=== PATIENT | female | born 2005 | race Caucasian/White ===

== ENCOUNTER 2024-10-20 09:47 | Emergency (ER) | payer SELFPAY ==
[~2024-10-20] VITALS: Ht 160 cm; Wt 93.0 kg
[2024-10-20 09:48] VITALS: BP 106/72; PULSE 80; RESP 16; O2SAT 97
[2024-10-20] MEDS ORDERED: ALBU8HFA INH (10:47)
[2024-10-20] MEDS ORDERED: BENZ-38 PO (10:47)
[2024-10-20 10:59] VITALS: TEMP 97.3
== END 2024-10-20 11:02 | disposition home or self-care (01) ==
LOC: ER 09:48
DX: J32.8 Other chronic sinusitis (principal); R05.9 Cough, unspecified
CPT/HCPCS: 99283

== ENCOUNTER 2024-11-26 10:10 | Emergency (ER) | payer OTHER ==
[~2024-11-26] VITALS: Ht 160 cm; Wt 90.5 kg
[2024-11-26 10:14] VITALS: BP 108/69; PULSE 76; RESP 16; O2SAT 100
--- NOTE | 2024-11-26 10:42 | RADIOLOGY REPORT ---
DI HAND, COMPLETE (3VW MIN), INDICATION: HAND PAIN TECHNICAL DATA: Frontal, oblique and lateral views were obtained of the right hand. COMPARISON: None FINDINGS: No fracture is identified. Joint spaces are maintained. Alignment is anatomic. Soft tissues are withi n normal limits. IMPRESSION: No acute fracture or dislocation of the right hand.
--- NOTE | 2024-11-26 12:56 | Physician Documentation ---
History of Present Illness ~ Chief Complaint: Hand pain Stated Complaint: RIGHT THUMB X2 DAYS Time Seen by MD: 11:37 HPI We will female presents with right thumb pain states she fell 2-3 days ago and injured her right thumb felt as though it hyperextended.. Reports increased pain and swelling denies any numbness or tingling Day of Onset: November 26, 2024 Medication Reconciliation Allergies: Coded Allergies: No Known Allergies (Unverified , 11/26/24) Discontinued Medications albuterol inhaler (Pro-Air Inhaler), 2 PUFFS INH Q4HPRN PRN for wheezing Discontinued Reason: Auto Discontinued Past Medical History Past Medical History: No Pertinent History Review of Systems All Other Systems at this time: Reviewed and Negative ROS As stated above in the HPI, otherwise all systems are reviewed and negative. Physical Exam Vital Signs: Temperature: 98.6, Source: Temporal, Heart Rate: 76, Respiratory Rate: 16, BP: 108/69, Pulse Oximetry: 100, Weight: 90.500 Oxygen Flow Rate: 0 Physical Exam General: Alert, no apparent distress. HEENT: PERRL, EOMI, no injection, moist mucous membranes. Neck: Full range of motion. Extremities: Notable for developing ecchymosis notable swelling no deformity Neurologic: Oriented x4. Psychiatric: Normal mood and affect. Skin: Normal color, warm and dry. No edema, no ecchymosis. Progress Results/Orders Results/Orders Vital Signs 11/26/24 10:14 Temp 98.6 Pulse 76 Resp 16 B/P (MAP) 108/69 Pulse Ox 100 O2 Flow Rate 0 Medical Decision Making Findings Per my interpretation patient's x-ray did not see any acute fracture radiologist's echoes these findings. Place patient in a thumb spica for comfort and advised her to follow up in the outpatient setting with her primary care. Departure Disposition: HOME / SELF CARE / HOMELESS Impression: Primary Impression: Hand pain Condition: Stable Discharge Instructions: Contusion (Bruise), Sprains Referrals: NO PRIMARY CARE PROVIDER (PCP) Signature Scribe Signature: 6t Attestation: The note accurately reflects work and decisions made by me.Quinn Suárez NP 11/26/24 12:55 QUINN GAVIRIA NP November 26, 2024 12:56
[2024-11-26 13:06] VITALS: TEMP 98.6
== END 2024-11-26 13:08 | disposition home or self-care (01) ==
LOC: ER 10:10
DX: M79.641 Pain in right hand (principal)
CPT/HCPCS: 29125; 73130; 99283

== ENCOUNTER 2025-01-14 11:01 | Emergency (ER) | payer OTHER ==
[~2025-01-14] VITALS: Ht 162.6 cm; Wt 85.0 kg
[~2025-01-14 11:01] MED LIST: ONDA-245 PO; PANT-47 PO
[2025-01-14 11:21] VITALS: TEMP 97.1
--- NOTE | 2025-01-14 11:25 | Physician Documentation ---
History of Present Illness Stated Complaint: ABD PAIN Primary Medical Doctor: MAURO HUA 19-year-old female presents to the ED with a complaint of right upper quadrant abdominal pain since this morning. She states while in [place] she had increase pain that primarily in the upper right quadrants of her abdominal cavity. States all she had for breakfast today was serial denies any exacerbating or alleviating factors. She did say that she was seen here in the ED and received a GI cocktail MD History: Patient comes in for evaluation of epigastric discomfort. This has been going on for about three weeks, worse with p.o. intake. She was seen three days ago for the epigastric pain as well as nausea and vomiting, had some relief with a GI cocktail, and was found to have a reassuring workup with no evidence of other pathology. She was discharged with Protonix and Zofran, which she has been guru matute. She comes in today reporting that the pain is still present and more stabbing than it was. She denies any vomiting, denies any blood in the stool. Medication Reconciliation Allergies: Coded Allergies: No Known Allergies (Unverified , 11/26/24) Scheduled Ondansetron 8mg ODT (Ondansetron Odt), 1 TAB PO Q6H Pantoprazole Sodium (PROTONIX tablet), 1 TAB PO DAILY Past Medical History Past Medical History: No Pertinent History Smoking Status: Former smoker (Quit four months ago) Alcohol Use: Sober Drug Use: none Review of Systems All Other Systems at this time: Reviewed and Negative Physical Exam Physical Exam General: Pt is awake, alert, oriented x4 in no acute distress and well appearing. Head: Normocephalic and atraumatic. Eyes: Conjunctiva normal. ENT: Mucous membranes moist. Neck: Supple. Chest: Clear to auscultation bilaterally, without rales, rhonchi, or wheezes. There is no accessory muscle use or retractions. Cardiac: Regular rate and rhythm without murmurs, gallops or rubs. Palpation of the chest wall is normal. Abd: Soft, nondistended, mildly tender in the epigastrium, with normoactive bowel sounds. No guarding or rebound. Extremities: Within normal limits without cyanosis, clubbing, or edema. Skin: [place], warm and dry with no significant rash appreciated. Neuro: Cranial nerves II-XII grossly intact. The gait is normal. Medical Decision Making Additional Comments Patient presented for evaluation of continuing epigastric pain, status post workup three days ago and institution of Zofran and Protonix. No new worrisome findings, physical examination showing no evidence for peritonitis, no need for repeat blood work to be done. Patient's ultrasound had been ordered in triage, to evaluate the right upper quadrant and there is no evidence for any right upper quadrant hepatobiliary pathology. Her symptoms are likely referable to gastritis versus peptic ulcer disease versus gastroesophageal reflux, and she has already started on the correct medication, although it will take occasionally a few days to start working. She is advised to use an antacid as needed for symptoms, and to follow up closely with her primary care in order to recheck and evaluate for EGD if necessary. Patient is stable for discharge, understands to return to the emergency department for any worsening of her symptoms or other concerns. Departure Time of Disposition: 13:54 Disposition: HOME / SELF CARE / HOMELESS Impression: Primary Impression: Abdominal pain Qualified Codes: R10.9 - Unspecified abdominal pain Condition: Stable Discharge Instructions: Abdominal Pain (Nonspecific), Gastritis, Adult Additional Instructions: Your ultrasound is normal showing no problem with your liver, gallbladder, or bile duct at this time. Your symptoms are likely secondary to problems with your stomach/esophagus as we discussed, and you should continue to take the Protonix. Please follow-up with your primary care provider, for a recheck and for referral to a GI specialist for a scope of your upper GI tract if it becomes necessary. Return to the emergency department if you have any new or worsening symptoms or any other concerns. Referrals: NO PRIMARY CARE PROVIDER (PCP) Education Educated: Patient Educated regarding: diagnosis, treatment Signature Scribe Signature: Attestation: ARCENIO GAVIRIA NP Jan 14, 2025 11:25 ALYCIA AN MD Jan 14, 2025 12:32
[2025-01-14 12:51] VITALS: BP 102/68; PULSE 84; RESP 19; O2SAT 98
--- NOTE | 2025-01-14 13:01 | RADIOLOGY REPORT ---
CLINICAL INFORMATION: 19 years old, Female; RUQ pain. TECHNIQUE: Grayscale sonographic imaging of the right upper quadrant of the abdomen was performed, a ssisted by color Doppler techniques. COMPARISON: None FINDINGS: The gallbladder wall measures 3.1 mm in thickness, at the upper limits of normal. No sto elie are seen. Negative reported sonographic buchanan's sign. The common bile duct measures 1.7 mm in d iameter, within normal limits. The liver is normal in size and echotexture. No focal lesions. The pancreas is obscured by bowel gas. The right kidney measures 9.3 cm. There is no hydronephrosis. Right renal cortical echogenicity an d cortical thickness are within normal limits. IMPRESSION: 1. No sonographic evidence of acute cholecystitis. 2. No acute findings are seen in the right upper abdomen.
== END 2025-01-14 14:14 | disposition home or self-care (01) ==
LOC: ER 11:02
DX: R10.11 Right upper quadrant pain (principal); F10.90 Alcohol use, unspecified, uncomplicated; Z87.891 Personal history of nicotine dependence; Y90.9 Presence of alcohol in blood, level not specified
CPT/HCPCS: 76700; 99284

== ENCOUNTER 2025-04-10 20:58 | Emergency (ER) | payer OTHER ==
[~2025-04-10] VITALS: Ht 160 cm; Wt 82.2 kg
[2025-04-10 21:12] VITALS: TEMP 97.9
[2025-04-10 21:22] LABS: MEAN PLATELET VOLUME 7.7 FL (7.4-10.4); RED CELL DISTRIBUTION WIDTH 14.2 % (11.5-14.5)
--- NOTE | 2025-04-10 21:42 | RADIOLOGY REPORT ---
EXAM: DI CHEST,SINGLE VIEW CLINICAL HISTORY: CP TECHNIQUE: Single AP view of the chest WID: COMPARISON: None FINDINGS: Lines and tubes: None Chest: The heart size and pulmonary vasculature is within normal limits. No pleural effusion, pneumothorax, or consolidation. The osseous structures are grossly intact. IMPRESSION: 1. No acute cardiopulmonary abnormality.
[2025-04-10 21:47] LABS: CREATININE 0.85 MG/DL (0.40-0.90); PRO BRAIN NATRIURETIC PEPTIDE < 30 PG/ML (0-125); TOTAL CARBON DIOXIDE 27.4 MMOL/L (24-32); eCRCL 86 ML/MIN; eGFR 84 ML/MIN
[2025-04-10 22:28] LABS: LEUKOCYTE ESTERASE ,URINE NEGATIVE (Neg); NITRITES, URINE NEGATIVE (Neg); OCCULT BLOOD,URINE NEGATIVE (Neg)
[2025-04-10 22:29] LABS: URINE HCG NEGATIVE (NEG)
--- NOTE | 2025-04-10 22:35 | Physician Documentation ---
History of Present Illness ~ Chief Complaint: Chest Pain Stated Complaint: CHEST PAIN Time Seen by MD: 22:33 Primary Medical Doctor: MAURO BERMUDEZ Mode of Arrival: POV HPI Patient presents to the emergency room with some chest pain. Symptoms began last night. Patient has been worked up for heartburn in his recently discontinued her proton pump inhibitor as she is preparing for Urease breath test. No fevers. No abdominal pain. No relieving or exacerbating factors. Positive nausea without vomiting Medication Reconciliation Allergies: Coded Allergies: No Known Allergies (Unverified , 11/26/24) Scheduled Ondansetron 8mg ODT (Ondansetron Odt), 1 TAB PO Q6H Pantoprazole Sodium (PROTONIX tablet), 1 TAB PO DAILY Past Medical History Past Medical History: No Pertinent History Alcohol Use: Sober Drug Use: none Review of Systems ROS All review of systems negative except as per HPI Physical Exam Vital Signs: Temperature: 97.9, Heart Rate: 65, Respiratory Rate: 16, BP: 124/75, Pulse Oximetry: 98, Weight: 82.200 Oxygen Flow Rate: 0 Physical Exam General: Patient is awake, alert, oriented x4 in no acute distress and well appearing.~ Head: Normocephalic and atraumatic. Eyes: Conjunctival normal. EOMI. PERRL. ENT: Mucous membranes moist. Neck: Supple, trachea is midline. Chest: Clear to auscultation bilaterally without rales, rhonchi, or wheezes. There is no accessory muscle use or retractions. Cardiac: RRR without murmurs, gallops, or rubs. Abd: Soft, nondistended, nontender, with normoactive bowel sounds. No guarding, rebound, or rigidity. Progress Results/Orders Results/Orders Orders - EDWIN FERREIRA MD Chest,Single View (04/10/25 21:32) Monitor (04/10/25 21:08) Saline Lock (04/10/25 21:08) Oxygen (04/10/25 21:08) Electrocardiogram (04/10/25 21:08) Hs Troponin I W Calculations (04/10/25 23:08) Hs Troponin I W Calculations (04/11/25 00:08) Ua W/Microscopic, Cult If Ind (04/10/25 22:10) Ondansetron Disint. Tablet (Zofran Odt T (04/10/25 22:45) Mag & Alum Hydrox/Simeth Susp (Maalox Or (04/10/25 22:45) Completed Orders - EDWIN FERREIRA MD Chest,Single View (04/10/25 21:32) Cbc/Diff (04/10/25 21:08) BMP (04/10/25 21:08) PBNP (04/10/25 21:08) Hs Troponin I W Calculations (04/10/25 21:08) Hcg, Ur Ql (04/10/25 21:24) Lipase (04/10/25 21:15) Vital Signs 04/10/25 04/10/25 04/10/25 21:12 22:31 22:31 Temp 97.9 Pulse 78 65 Resp 16 16 16 B/P (MAP) 116/80 124/75 (91) Pulse Ox 100 98 O2 Flow Rate 0 0 Laboratory Tests Test 04/10/25 21:15 04/10/25 22:10 White Blood Count 11.4 H Red Blood Count 4.86 Hemoglobin 14.3 Hematocrit 42.8 Mean Corpuscular Volume 88.1 Mean Corpuscular Hemoglobin 29.5 Mean Corpuscular Hemoglobin Concent 33.5 Red Cell Distribution Width 14.2 Platelet Count 423 Mean Platelet Volume 7.7 Neutrophils (%) (Auto) 72.4 Lymphocytes (%) (Auto) 19.9 L Monocytes (%) (Auto) 5.3 Eosinophils (%) (Auto) 2.0 Basophils (%) (Auto) 0.4 Neutrophils # (Auto) 8.2 H Lymphocytes # (Auto) 2.3 Monocytes # (Auto) 0.6 Eosinophils # (Auto) 0.2 Basophils # (Auto) 0.0 CBC Comment Sodium Level 142 Potassium Level 4.5 Chloride Level 105 Carbon Dioxide Level 27.4 Anion Gap 10 Blood Urea Nitrogen 7 Creatinine 0.85 Estimated GFR/1.73 m2 84 BUN/Creatinine Ratio 8.2 L Glucose Level 100 Calcium Level 9.7 Troponin I High Sensitivity 4 Pro-B-Type Natriuretic Peptide < 30 Albumin 4.7 Lipase 18 Chemistry Comments Urine Specimen Description Cln catch midstream Urine Color Yellow Urine Clarity Slightly cloudy Urine pH 6.0 Urine Specific [place] >=1.030 Urine Protein Negative Urine Glucose (UA) Negative Urine Ketones 15 H Urine Occult Blood Negative Urine Nitrite Negative Urine Bilirubin Small Urine Urobilinogen 0.2 Urine Leukocyte Esterase Negative Volume Urine Centrifuged 10 ml Urine HCG, Qualitative Negative Urine Comment Medical Decision Making Findings Patient presented to the emergency room with chest pain as per HPI. Differentials include but are not limited to ACS, reflux, musculoskeletal pain, pneumothorax therefore emergent labs and imaging indicated. Labs imaging are reassuring. Patient's pain is atypical with a heart score of one. ER precautions discussed. Departure Disposition: HOME / SELF CARE / HOMELESS Impression: Primary Impression: Chest pain Condition: Stable Discharge Instructions: Nonspecific Chest Pain, Adult Referrals: NO PRIMARY CARE PROVIDER (PCP) Signature Scribe Signature: No scribe Attestation: The note accurately reflects work and decisions made by me.Edwin Ferreira MD 04/10/25 22:44 EDWIN FERREIRA MD Apr 10, 2025 22:35
[2025-04-10 22:40] LABS: UA COLLECTION TYPE CLN CATCH MIDSTREAM
[2025-04-10 22:41] LABS: MUCUS STRANDS MANY /LPF (Neg); SQUAMOUS EPITHELIAL CELL,UR MANY /LPF (FEW)
[2025-04-10] MEDS: mag hydrox/Alum hydrox/simeth 30ml oral suspension PO ONE (22:58)
[2025-04-10] MEDS: ondansetron 4mg rapidly disintigrating tab PO ONE (22:58)
[2025-04-10 23:02] VITALS: BP 124/75; PULSE 65; RESP 16; O2SAT 98
--- NOTE | 2025-04-11 07:08 | ELECTROCARDIOGRAPH REPORT ---
[facility] Test Date: 2025-04-10 Test Time: 21:02:24 Pat Name: JOEL GUNTER Department: EMERGENCY ROOM Room: Gender: F Developmental Specialist: CHIP : [id number] Requested By: ELISE GONZALEZ Order Number: [id number] Reading MD: Dr. Won Aguilera Measurements Intervals [place] Rate: 75 P: 48 [place]: 130 QRS: 50 QRSD: 94 T: 25 QT: 384 QTc: 429 Interpretive Statements Sinus rhythm Electronically Signed On 04-12-2025 21:42:[address] Won Aguilera Please click the below link to view image of tracing.
== END 2025-04-10 23:04 | disposition home or self-care (01) ==
LOC: ER 20:59
DX: R07.9 Chest pain, unspecified (principal); Z79.899 Other long term (current) drug therapy
CPT/HCPCS: 36415; 71045; 80048; 81001; 81025; 83690; 83880; 84484; 85025; 93005; 99285

== ENCOUNTER 2025-06-22 22:34 | Emergency (ER) | payer OTHER ==
[~2025-06-22] VITALS: Ht 160 cm; Wt 80.5 kg
[2025-06-22 23:35] LABS: MEAN PLATELET VOLUME 7.7 FL (7.4-10.4); RED CELL DISTRIBUTION WIDTH 13.6 % (11.5-14.5)
[2025-06-22 23:47] LABS: CREATININE 0.73 MG/DL (0.40-0.90); TOTAL CARBON DIOXIDE 25.2 MMOL/L (24-32); eCRCL 100 ML/MIN; eGFR > 90 ML/MIN
[2025-06-23 01:08] LABS: LEUKOCYTE ESTERASE ,URINE NEGATIVE (Neg); NITRITES, URINE NEGATIVE (Neg); OCCULT BLOOD,URINE NEGATIVE (Neg)
[2025-06-23 01:10] LABS: URINE HCG NEGATIVE (NEG)
[2025-06-23 01:13] LABS: UA COLLECTION TYPE CLN CATCH MIDSTREAM
--- NOTE | 2025-06-23 01:15 | Physician Documentation ---
History of Present Illness ~ Chief Complaint: Abdominal Pain w/vomiting Stated Complaint: VOMITING Time Seen by MD: 01:01 Primary Medical Doctor: MAURO HUA 20-year-old female who presents with sudden onset of nausea vomiting and diarrhea She tells me she is at a work release program. She suddenly started to feel ill today including fevers, chills, nausea, vomiting and diarrhea. This struck suddenly and was severe. She currently states she feels quite a bit better. She did take some Zofran. No other medications taken. No abdominal pain. No dysuria. No other acute concerns. She is currently able to drink water. Medication Reconciliation Allergies: Coded Allergies: No Known Allergies (Unverified , 11/26/24) Scheduled Ondansetron 8mg ODT (Ondansetron Odt), 1 TAB PO Q6H Pantoprazole Sodium (PROTONIX tablet), 1 TAB PO DAILY Past Medical History Past Medical History: No Pertinent History Alcohol Use: Sober Drug Use: none Review of Systems Constitutional: Reports: chills, fever Gastrointestinal: Reports: nausea, vomiting, diarrhea; Denies: abdominal pain Physical Exam Vital Signs: Temperature: 98.8, Source: Temporal, Heart Rate: 81, Respiratory Rate: 16, BP: 115/69, Pulse Oximetry: 16, Weight: 80.450 Oxygen Flow Rate: 0 Physical Exam General: This is a pleasant and currently well-appearing young female, resting when I enter the room HEENT: Atraumatic, oropharynx is moist Heart: Regular rate and rhythm, normal-appearing peripheral perfusion Lungs: normal work of breathing, normal oxygen saturation on room air Abdomen: Soft, nondistended, nontender all quadrants, no rebound or guarding Neuro: Alert and oriented Psychiatric: Calm and cooperative with exam Progress Results/Orders Results/Orders Orders - ALEJANDRO ANDREWS MD General Nursing Order (06/23/25 ) Completed Orders - ALEJANDRO ANDREWS MD Urinalysis, Cult If Indicated (06/22/25 23:08) Hcg, Ur Ql (06/22/25 23:08) Cbc/Diff (06/22/25 23:08) BMP (06/22/25 23:08) Lipase (06/22/25 23:08) CMP (06/22/25 23:08) Influenza Type A&B Rapid Test (06/22/25 23:08) Promethazine Tablet (Phenergan Tablet) (06/23/25 01:15) Prochlorperazine Tablet (Compazine Table (06/23/25 02:15) Medications Received in ER Medications (Trade) Dose Ordered Sig/Maryellen Route PRN Reason Start Time Stop Time Status Last Admin Dose Admin (Compazine tablet) 10 mg ONCE ONCE PO 06/23/25 02:15 06/23/25 02:16 DC 06/23/25 02:22 10 MG Vital Signs 06/22/25 06/23/25 06/23/25 06/23/25 23:03 01:05 01:05 02:35 Temp 98.8 98.2 Pulse 81 80 74 Resp 16 18 18 18 B/P (MAP) 115/69 124/80 (95) 114/80 Pulse Ox 16 99 99 O2 Flow Rate 0 Laboratory Tests Test 06/22/25 23:23 06/23/25 01:00 White Blood Count 10.5 Red Blood Count 4.48 Hemoglobin 13.5 Hematocrit 39.8 Mean Corpuscular Volume 88.8 Mean Corpuscular Hemoglobin 30.1 Mean Corpuscular Hemoglobin Concent 33.9 Red Cell Distribution Width 13.6 Platelet Count 315 Mean Platelet Volume 7.7 Neutrophils (%) (Auto) 79.2 H Lymphocytes (%) (Auto) 14.3 L Monocytes (%) (Auto) 5.4 Eosinophils (%) (Auto) 0.7 Basophils (%) (Auto) 0.4 Neutrophils # (Auto) 8.3 H Lymphocytes # (Auto) 1.5 Monocytes # (Auto) 0.6 Eosinophils # (Auto) 0.1 Basophils # (Auto) 0.0 CBC Comment Sodium Level 138 Potassium Level 3.9 Chloride Level 104 Carbon Dioxide Level 25.2 Anion Gap 9 Blood Urea Nitrogen 10 Creatinine 0.73 Estimated GFR/1.73 m2 > 90 BUN/Creatinine Ratio 13.7 Glucose Level 97 Calcium Level 9.5 Total Bilirubin 0.4 Aspartate Amino Transf (AST/SGOT) 13 Alanine Aminotransferase (ALT/SGPT) 17 Alkaline Phosphatase 72 Total Protein 7.4 Albumin 4.5 Globulin 2.9 Albumin/Globulin Ratio 1.6 H Lipase 32 Chemistry Comments Urine Specimen Description Cln catch midstream Urine Color Yellow Urine Clarity Clear Urine pH 5.5 Urine Specific [place] 1.020 Urine Protein Negative Urine Glucose (UA) Negative Urine Ketones 40 H Urine Occult Blood Negative Urine Nitrite Negative Urine Bilirubin Small Urine Urobilinogen 0.2 Urine Leukocyte Esterase Negative Urine Culture Indicated Not ind Volume Urine Centrifuged 10 ml Urine HCG, Qualitative Negative Urine Comment Medical Decision Making Additional information obtaine: N/A Findings na Diff Dx GI Bleed:Consideration: Unlikely: Esophagitis Diff Dx Pain:Considerations: Unlikely: Constipation Diff Dx N/V/D:Considerations: Include: Electrolyte imbalance, Food poisoning, G astroenteritis Diff Dx Rectal:Considerations: Unlikely: Rectal prolapse Additional Comments The patient presents with sudden onset of chills, nausea vomiting and diarrhea. Per her history I suspect she has either a viral infection or food poisoning. She has a benign abdominal exam. Labs ordered from triage are unremarkable. Viral swabs will be obtained. She will be given nausea medicine and discharged with home care instructions. Departure Disposition: HOME / SELF CARE / HOMELESS Impression: Primary Impression: Nausea vomiting and diarrhea Condition: Improved Referrals: NO PRIMARY CARE PROVIDER (PCP) Education Educated: Patient Educated regarding: diagnosis, treatment Signature Scribe Signature: na Attestation: ALEJANDRO Bonner MD Jun 23, 2025 01:15
[2025-06-23 02:35] VITALS: BP 114/80; PULSE 74; RESP 18; TEMP 98.2; O2SAT 99
[2025-06-23 03:39] LABS: INFLUENZA TYPE A ANTIGEN RAPID NEGATIVE (Negative); INFLUENZA TYPE B ANTIGEN RAPID NEGATIVE (Negative)
== END 2025-06-23 06:00 | disposition home or self-care (01) ==
LOC: ER 22:35
DX: R11.2 Nausea with vomiting, unspecified (principal); R19.7 Diarrhea, unspecified
CPT/HCPCS: 36415; 80053; 81003; 81025; 83690; 85025; 87804; 99283; Q0164